=== PATIENT | male | born 1955 | race Caucasian/White ===

== ENCOUNTER 2023-01-06 05:12 | Day surgery (SDC) | payer OTHER, BC ==
[2023-01-05 12:05] VITALS: BMI 32.3
[2023-01-06 11:21] VITALS: TEMP 97.8
[2023-01-06 11:48] VITALS: BP 100/61; PULSE 65; RESP 15
== END 2023-01-06 12:00 | disposition home or self-care (01) ==
LOC: JASU-ENDO 05:12
PROVIDERS: ATTEND Internal Medicine Gastroenterology
PROC: 0DBK8ZX Excision of Ascending Colon, Via Natural or Artificial Opening Endoscopic, Diagnostic (ICD-10-PCS; principal; 2023-01-06 10:00)
DX: Z12.11 Encounter for screening for malignant neoplasm of colon (principal); D12.2 Benign neoplasm of ascending colon; K64.8 Other hemorrhoids; K57.30 Diverticulosis of large intestine without perforation or abscess without bleeding; Z80.0 Family history of malignant neoplasm of digestive organs; I10 Essential (primary) hypertension
CPT/HCPCS: 88305-TC